=== PATIENT | female | born 1975 | race Caucasian/White ===

== ENCOUNTER 2022-01-02 07:45 | Emergency (ER) | payer OTHER, BC ==
[~2022-01-02] VITALS: Ht 165.1 cm; Wt 117.9 kg
[~2022-01-02 07:45] MED LIST: ANTIVERT25 MG PO; FLEXERIL PO; IBUPROFEN 800800 M1 PO; LORTAB 5 MG/5001 TAB PO; NOHOMEMEDICATIONS; NORCO 5-325 TA1 EACH PO; PHENERGAN25 MG PO
[2022-01-02] MEDS ORDERED: SYMBICORT160 MCG/4. INH (07:58)
[2022-01-02] MEDS ORDERED: PROAIR HFA8.5 GM INH (07:58)
[2022-01-02] MEDS ORDERED: HYDROCODON-ACE1 EAC7 PO (08:47)
[2022-01-02] MEDS ORDERED: ZOFRAN ODT4 MG DISSOLVE (08:47)
[2022-01-02 09:20] VITALS: BP 154/78
== END 2022-01-02 09:21 | disposition home or self-care (01) ==
LOC: M.ERS 07:45
DX: S16.1XXA Strain of muscle, fascia and tendon at neck level, initial encounter (principal); S00.93XA Contusion of unspecified part of head, initial encounter; M25.512 Pain in left shoulder; R07.89 Other chest pain; R11.2 Nausea with vomiting, unspecified; R42 Dizziness and giddiness; J44.9 Chronic obstructive pulmonary disease, unspecified; Z90.710 Acquired absence of both cervix and uterus; Z90.49 Acquired absence of other specified parts of digestive tract; Z90.89 Acquired absence of other organs; Z79.899 Other long term (current) drug therapy; Z88.8 Allergy status to other drugs, medicaments and biological substances; V40.5XXA Car driver injured in collision with pedestrian or animal in traffic accident, initial encounter; Y93.I9 Activity, other involving external motion; Y92.488 Other paved roadways as the place of occurrence of the external cause; Y99.8 Other external cause status